=== PATIENT | female | born 1965 | race African-American/Black ===

== ENCOUNTER 2018-01-10 17:40 | Emergency (ER) | payer MEDICAID ==
[~2018-01-10] VITALS: Ht 167.6 cm; Wt 70.0 kg
[2018-01-10 20:10] VITALS: BP 134/94
== END 2018-01-10 21:30 | disposition home or self-care (01) ==
LOC: ER 20:44
DX: M25.512 Pain in left shoulder (principal); R03.0 Elevated blood-pressure reading, without diagnosis of hypertension; Y04.0XXA Assault by unarmed brawl or fight, initial encounter; Y93.89 Activity, other specified; Y92.89 Other specified places as the place of occurrence of the external cause
CPT/HCPCS: 73030; 81025; 99284

== ENCOUNTER 2018-03-24 11:35 | Emergency (ER) | payer MEDICAID ==
[~2018-03-24] VITALS: Ht 167.6 cm; Wt 67.0 kg
[2018-03-24 12:43] VITALS: BP 139/86
== END 2018-03-24 17:05 | disposition left against medical advice (07) ==
LOC: ER 14:48
DX: R51 Headache (principal); R20.0 Anesthesia of skin; I10 Essential (primary) hypertension; I51.9 Heart disease, unspecified; F10.20 Alcohol dependence, uncomplicated; Z53.21 Procedure and treatment not carried out due to patient leaving prior to being seen by health care provider; Y90.9 Presence of alcohol in blood, level not specified

== ENCOUNTER 2018-03-25 20:15 | Emergency (ER) | payer MEDICAID ==
[~2018-03-25] VITALS: Ht 167.6 cm; Wt 79.0 kg
[2018-03-25] MEDS ORDERED: DIPHENHYDRAMINE 50MG/ML VIAL IV ONE (21:30)
[2018-03-25] MEDS ORDERED: METOCLOPRAMIDE HCL 10MG/2ML VIAL IV ONE (21:30)
[2018-03-25] MEDS ORDERED: KETOROLAC 15MG/ML VIAL IV ONE (21:30)
[2018-03-26 01:20] VITALS: BP 112/62
== END 2018-03-26 01:34 | disposition home or self-care (01) ==
LOC: ER 20:15
DX: S09.8XXA Other specified injuries of head, initial encounter (principal); M25.561 Pain in right knee; M25.512 Pain in left shoulder; I11.0 Hypertensive heart disease with heart failure; I50.9 Heart failure, unspecified; M19.90 Unspecified osteoarthritis, unspecified site; W19.XXXA Unspecified fall, initial encounter; Y93.89 Activity, other specified; Y92.89 Other specified places as the place of occurrence of the external cause; Y99.8 Other external cause status
CPT/HCPCS: 70450; 72125; 73030; 73562; 96374; 96375; 99284; J1200; J1885; J2765; Z7610

== ENCOUNTER 2020-11-07 12:43 | Emergency (ER) | payer MEDICAID ==
[~2020-11-07] VITALS: Ht 165.1 cm; Wt 52.0 kg
[2020-11-07 12:48] VITALS: BP 110/72
[2020-11-07] MEDS ORDERED: ACETAMINOPHEN 325MG TABLET PO STA (13:08)
[2020-11-07] MEDS ORDERED: NITROGLYCERIN 0.4MG TABLET SL SL PRN (13:15)
[2020-11-07] MEDS ORDERED: ASPIRIN 81MG TABLET PO ONE (13:15)
== END 2020-11-07 15:02 | disposition left against medical advice (07) ==
LOC: ER 12:43 → CANBEDREQ 15:01 → ER 15:02
DX: R07.89 Other chest pain (principal); J45.909 Unspecified asthma, uncomplicated; I10 Essential (primary) hypertension; Z86.59 Personal history of other mental and behavioral disorders
CPT/HCPCS: 93005; 99283

== ENCOUNTER 2024-04-04 01:45 | Emergency (ER) | payer MEDICARE, MEDICAID ==
[~2024-04-04] VITALS: Ht 157.5 cm; Wt 50.0 kg
[2024-04-04 01:49] VITALS: BP 106/72; PULSE 85; RESP 16; TEMP 98; O2SAT 98
[2024-04-04] MEDS ORDERED: DIPHENHYDRAMINE 25MG CAPSULE PO ONE (03:15)
[2024-04-04] MEDS ORDERED: DIPHENHYDRAMINE 25MG CAPSULE PO NR (05:00)
[2024-04-04] MEDS ORDERED: HYDR453.3 TP (05:25)
[2024-04-04] MEDS ORDERED: DIPH25TA62 MT (05:25)
[2024-04-04] MEDS: DEXAMETHASONE 10 MG/ML VIAL PO ONE (05:47)
[2024-04-04] MEDS: FAMOTIDINE 20MG TABLET PO ONE (05:47)
[2024-04-04] MEDS ORDERED: PERM60CR4 TP (13:25)
== END 2024-04-04 05:46 | disposition home or self-care (01) ==
LOC: ER 01:45
DX: T78.40XA Allergy, unspecified, initial encounter (principal); J45.909 Unspecified asthma, uncomplicated; Y92.9 Unspecified place or not applicable
CPT/HCPCS: 99283; J1100

== ENCOUNTER 2024-04-04 12:45 | Emergency (ER) | payer MEDICARE, MEDICAID ==
[~2024-04-04] VITALS: Ht 170.2 cm; Wt 68.0 kg
[~2024-04-04 12:45] MED LIST: DIPH25TA62 MT; HYDR453.3 TP
[2024-04-04 12:57] VITALS: TEMP 98; O2SAT 100
[2024-04-04 13:18] VITALS: BP 123/89; PULSE 91; RESP 17; O2SAT 98
[2024-04-04] MEDS ORDERED: PERM60CR4 TP (13:25)
== END 2024-04-04 14:31 | disposition home or self-care (01) ==
LOC: ER 12:45
DX: B86 Scabies (principal); F10.129 Alcohol abuse with intoxication, unspecified; Z79.899 Other long term (current) drug therapy; Y90.9 Presence of alcohol in blood, level not specified
CPT/HCPCS: 99283

== ENCOUNTER 2024-05-07 23:26 | Emergency (ER) | payer MEDICAID, MEDICARE ==
[~2024-05-07] VITALS: Ht 170.2 cm; Wt 69.0 kg
[~2024-05-07 23:26] MED LIST changes: +PERM60CR4 TP
[2024-05-07 23:30] VITALS: BP 109/63; PULSE 87; TEMP 97.9; O2SAT 99
[2024-05-08] MEDS ORDERED: DIPH25CA51 PO (02:56)
[2024-05-08] MEDS ORDERED: P50 MT (02:56)
[2024-05-08] MEDS ORDERED: PERM60CR4 TP (02:56)
[2024-05-08 03:00] VITALS: RESP 18
[2024-05-08] MEDS: DIPHENHYDRAMINE 50MG/ML VIAL IM ONE (03:10)
[2024-05-08] MEDS: PREDNISONE 20MG TABLET PO ONE (03:10)
== END 2024-05-08 04:16 | disposition home or self-care (01) ==
LOC: ER 23:26
DX: R21 Rash and other nonspecific skin eruption (principal)
CPT/HCPCS: 99283; 96372; J7512; J1200

== ENCOUNTER 2024-05-23 03:15 | Emergency (ER) | payer MEDICARE ==
[~2024-05-23] VITALS: Ht 172.7 cm; Wt 66.0 kg
[~2024-05-23 03:15] MED LIST changes: +DIPH25CA51 PO; +P50 MT
[2024-05-23 03:16] VITALS: BP 108/73; PULSE 82; RESP 16; TEMP 98.5; O2SAT 100
== END 2024-05-23 05:44 | disposition left against medical advice (07) ==
LOC: ER 03:15
DX: L29.9 Pruritus, unspecified (principal); Z53.21 Procedure and treatment not carried out due to patient leaving prior to being seen by health care provider

== ENCOUNTER 2024-07-23 15:01 | Emergency (ER) | payer MEDICARE ==
[~2024-07-23] VITALS: Ht 165.1 cm; Wt 65.0 kg
[2024-07-23 15:04] VITALS: O2SAT 99
[2024-07-23 18:58] VITALS: BP 145/85; PULSE 87; RESP 18; TEMP 36.94740; O2SAT 99
== END 2024-07-23 19:32 | disposition home or self-care (01) ==
LOC: ER 15:01
DX: T51.0X1A Toxic effect of ethanol, accidental (unintentional), initial encounter (principal); J45.909 Unspecified asthma, uncomplicated; I10 Essential (primary) hypertension; Z63.0 Problems in relationship with spouse or partner; Z86.19 Personal history of other infectious and parasitic diseases; Z79.899 Other long term (current) drug therapy; X58.XXXA Exposure to other specified factors, initial encounter
CPT/HCPCS: 99283

== ENCOUNTER 2024-08-01 12:09 | Emergency (ER) | payer MEDICARE ==
[~2024-08-01] VITALS: Ht 170.2 cm; Wt 75.0 kg
[2024-08-01 12:11] VITALS: BP 102/60; PULSE 90; RESP 16; TEMP 36.7; O2SAT 99
== END 2024-08-01 16:49 | disposition left against medical advice (07) ==
LOC: ER 12:37
DX: F10.129 Alcohol abuse with intoxication, unspecified (principal); Y90.9 Presence of alcohol in blood, level not specified
CPT/HCPCS: 99283

== ENCOUNTER 2024-08-26 09:29 | Emergency (ER) | payer MEDICARE ==
[~2024-08-26] VITALS: Ht 167.6 cm; Wt 73.0 kg
[2024-08-26 09:34] VITALS: BP 121/76; PULSE 86; RESP 18; TEMP 36.9; O2SAT 97
[2024-08-26] MEDS ORDERED: HYDR453.3 TP (10:26)
== END 2024-08-26 10:58 | disposition home or self-care (01) ==
LOC: ER 09:29
DX: R21 Rash and other nonspecific skin eruption (principal); I10 Essential (primary) hypertension; F41.9 Anxiety disorder, unspecified; Z79.899 Other long term (current) drug therapy; Z86.59 Personal history of other mental and behavioral disorders
CPT/HCPCS: 99283